=== PATIENT | female | born 1985 | race Caucasian/White ===

== ENCOUNTER 2019-04-04 05:48 | Day surgery (SDC) | payer OTHER ==
--- NOTE | 2019-04-03 21:14 | PDGENHP ---
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 Sacroiliac Joint Pain (R>L) 3. 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.~~She~is engaged;~nicholas~has no~children. ~Ann enjoys climbing, running, yoga, hiking, [employer] skiing and mountaineering. Mary Ann's~bilateral~hip pain (L>R)~started at age 6 (although within the last 10 the pain has progressively gotten worse), with~no~recalled trauma or injury,. ~Anndoes not have~a known history of hip dysplasia. Presentation today is of~C-Shaped pattern~bilateral~hip pain. ~The hip~does not~ wake her~at night and~does not~click and catch on~her. Sitting~can be a real struggle~for her.~Anndoes~report suffering from lower back pain episodes. Annhas not~participated in physical therapy and has not~tried other conservative measures. Annhas~utilized medication for pain management, including NSAID.~Ann has used medication since the pain began. Annunderstands that~nicholas~has a hip and pelvis problem which should be researched and wishes to get a better understanding of~her~hip status, followed by an establishment of a treatment strategy, hoping~nicholas~would be able to get back to~her~well being active life. History: Past medical history:~~ History of Osteopenia Relevant familial history:~None which is relevant~ Past surgical history:~ No. Surgery Anesthesia 1 Left ulna/radius ORIF general 2 Femoral hernias general 3 Sinus surgery general Mary Ann~denies problematic issues with general anesthesia in the past. I have reviewed, verified and agree with the past medical, surgical, family and social history. Current Medications:~has a current medication list which includes the following prescription(s): celecoxib, ondansetron, ondansetron, tretinoin, tretinoin, and venlafaxine. ALLERGIES:~is allergic to iodine. Objective: Physical Examination: Mary Ann~is 5~feet~9~inches tall and weighs~138~Lbs. Mary Ann~is AAO x3; she~is well-nourished, in NAD. Skin is warm and dry. ~Breathing is non-labored. ~CV with RRR by pulse. Abdomen is soft, NTND. Currently,~she~walks with a~normal~gait. Trendelenburg sign is~negative~and proprioception~is normal,~both~sides. She~presents~with mild~signs of joint laxity.~Beightons Score:~1 Lower spine examination is~negative~for sciatic or femoral nerve irritation with negative~SLR &~femoral stretch tests. Range of motion of the spine is normal~for flexion, extension, and rotations,~with no~associated pain. Strength, Sensation and pulses are~normal -~bilaterally Ankles and knees exams are~normal~and~no~mal-alignment is evident.~ She~has~no leg length discrepancy. Thigh circumference is~symmetric~with no evidence for muscle atrophy~on both~ sides. FOOT SIZE:~9 Hip ROM (degrees): FL ER At 90~hip FL IR At 90~hip FL AB AD EX IR Neutral hip ER Neutral hip R 120 45 30 40 5 10 50 35 L 120 50 20 35 10 10 50 40 Specific hip and pelvis tests: Impingement Test KINGA Roll Add. Longus R +++ +++ Negative Negative L +++ +++ + Negative Glut. Med ITB Posterior Imp R Negative 5/5 strength Negative 5/5 strength Negative L Negative 5/5 strength Negative 5/5 strength Negative Squeeze test measured~strong Bony Symphysis pubis is~pain free~to touch while concentric activity of the rectus abdominis, does not~produce pain at its insertion. Ilio Psos specific tests are~negative for pain during cycling for~both hips~and no snap. HF has~pain and weakness~the left hip. Greater trochanteric burse is~pain free~on both hips. Piriformis tests: FAIR is~negative,~with no~local signs of neuritis related to sciatic nerve. SIJs examination is~produces pain on~both sides~with~normal~KINGA in relation and local tenderness. Hamstrings tests are~negative~functional contraction and negative~tendinopathy both hips. On a daily basis, the following percentages reflectSuzi's overall total pain : Deep hip:~40% SIJ:~60% Imaging: Radiology studies which I~have personally reviewed, analyzed and measured are below: XR: AP of the hip and pelvis: Performed in a~good~technique Coccyx to pubic symphysis distance~1.9~cm. 0~degrees [place]~Lines are preserved. Minimal~Pathological signs are seen in the Symphysis Pubis.~ Minimal~Pathological signs are seen at the Ischial~tuberosity. ~ Specific measurements show: NSA~ LCE Sourcil~Angle Sharp's angle Lat. Cam Lat. Pincer C.Over~sign Head~Coverage % ATDmm R N 34 2 41 + - - N N L N 40 1 39 + - - N N Labral calcifications Pos. wall sign ISS NAD ~~Dysplasia Comments R Negative Negative 11.5~mm Negative L Negative Negative 12.7~mm Negative Sclerosis Sup. Lat. OA Cysts Joint Space-WBZ Joint Space-Medial R Negative Negative + 4.9~mm 4.6~mm L Negative + Negative 4.2~mm 2.8~mm X Table lateral: Anterior cam lesion is~seen~on both hips. Alpha Angle: ~ Right~57~dergrees Left~52~degrees Impression and plan:Violet Reese~is a~33 y.o.~active female~suffering from symptomatic~Bilateral~hip pain due to Femoroacetabular impingement (MEREDITH)~Cam type,~with~resultant labral tear causing significant disability to~her~and altering~her~sport and life activities. Physical examination, imaging, and~her~story correspond with the diagnosis mentioned above. I explained that femoroacetabular impingement (MEREDITH) arises due to a bony or soft tissue conflict between the femur (ball) and acetabulum (socket) caused by an abnormality in the shape of the hip joint. Over time, repetitive impingement can result in damage to the labrum and adjacent surface cartilage within the socket, ultimately giving rise to progressive osteoarthritis of the hip. I explained that although a labral tear can be a source of pain, it is rarely the root of the problem and typically occurs secondary to an underlying abnormality in the shape and mechanics of the hip joint. ~ I reviewed conservative treatment options for MEREDITH including activity modification to avoid positions of impingement, physical therapy, non-steroidal anti-inflammatory medications, and various injections (corticosteroid and PRP) aimed at reducing inflammation in the hip joint or/and preventing dynamic impingement. PRP injections may promote healing and reduce symptoms in certain cases but it will not repair chronically damaged tissue. Although these measures may help to buy time and reduce current level of symptoms, they are not a definitive solution to the problem given the underlying abnormality in the shape of the hip joint. Patients who have failed conservative management and continue to experience symptoms are candidates for hip arthroscopy, a minimally invasive surgery that can definitively address the underlying problem. Hip arthroscopy typically includes treating the labrum with either repair or reconstruction of the torn labrum; as well as addressing the underlying abnormalities by restoring the normal shape to the hip joint. ~If the cartilage is damaged a Microfracture surgical procedure may also be necessary to help stimulate the growth of fibrocartilage. ~If a patient requires a labral reconstruction or a Microfracture, the initial rehabilitation from the surgery may take longer, but the watermelon inspector results are typically favorable. I reviewed the technical aspects of hip arthroscopy including risks, benefits, and expected course of recovery.~Mary Ann~understands that hip arthroscopy is a minimally invasive outpatient procedure carried out through small incisions on the outer aspect of the hip joint. During surgery, the labral tear will be identified and either repaired or reconstructed~using bone anchors and suture material. Additionally, any excessive bone will be removed with a high-speed adonis to reshape the hip joint and restore normal anatomy. Risks include infection, bleeding, injury to nearby nerves or vessels, stiffness, persistent pain, instability, venous thromboembolic disease, and traction related complications including temporary foot numbness. Rarely, revision surgery may be required to address these problems. Overall recovery takes approximately 4~ 8~months depending on the extent of damage and degree of repair. In the event that the labral tissue quality is inadequate for successful repair and healing,~Mary Ann~understands that a labral reconstruction will be performed. This procedure entails placing a cadaver tissue graft within the hip joint and stabilizing it with bone anchors to build a new labrum. The overall recovery time for labral reconstruction is similar to that of labral repair, although the surgical procedure takes longer to perform. Annwill review the info presented. In order to obtain more detailed information regarding the alignment, orientation, and shape of the bony hip and pelvis I will order a CT scan to be performed. The results of the CT scan, including femoral torsion and acetabular version measured values and 3D images, will aid me in deciding on the best treatment strategy and surgical pre-planning. In order to better evaluate the soft tissues and cartilage of the hip joint, I will order a~LEFT HIP~MRI scan. We will refer her to Dr. Sotelo to evaluate her Sacroiliac Joint Pain Annwill contact us if she~wishes to pursue further treatment in the future. Annis happy with this plan. I have also supplied~her~with handouts, outlining the expected surgical treatment and rehab involved. I wish~Annall the best, ~~ Pipo Aguilar, PAC History Information - Allergies/Home Medication List Allergies/Adverse Reactions: No Known Allergies Allergy (Verified 03/29/19 11:54) Home Medications: Effexor Xr 03/29/19 [Last Taken Unknown] I have personally reviewed and updated: medical history - Social History Smoking Status: Never smoked Review of Systems Review of Systems: Physical Exam Physical Exam:
[2019-04-04] MEDS ORDERED: ceFAZolin 2 GM/DEXTROSE 100 ML IV ONE (06:01)
[2019-04-04] MEDS ORDERED: ACETAMINOPHEN 500 MG TAB PO ONE (06:01)
[2019-04-04] MEDS ORDERED: PREGABALIN 150 MG CAP PO ONE (06:01)
[2019-04-04] MEDS ORDERED: LR 1,000 ML IV ONE (06:02)
[2019-04-04] MEDS ORDERED: ONDANSETRON 4 MG/2 ML VIAL IVP ONE (06:17)
[2019-04-04] MEDS ORDERED: fentaNYL 100 MCG/2 ML INJ ONE (06:48)
--- NOTE | 2019-04-04 06:48 | PDANEPAE ---
ANE History of Present Illness here for B hip arthroscopy femoroplasty ANE Past Medical History - Cardiovascular History Hx Hypertension: No Hx Arrhythmias: No Hx Chest Pain: No Hx Coronary Artery / Peripheral Vascular Disease: No Hx CHF / Valvular Disease: No Hx Palpitations: No - Pulmonary History Hx COPD: No Hx Asthma/Reactive Airway Disease: No Hx Recent Upper Respiratory Infection: No Hx Oxygen in Use at Home: No Hx Sleep Apnea: No Sleep Apnea Screening Result - Last Documented: Negative - Neurologic History Hx Cerebrovascular Accident: No Hx Seizures: No Hx Dementia: No - Endocrine History Hx Diabetes: No - Renal History Hx Renal Disorders: No - Liver History Hx Hepatic Disorders: No - Neurological & Psychiatric Hx Hx Neurological and Psychiatric Disorders: No - Cancer History Hx Cancer: No - Congenital Disorder History Hx Congenital Disorders: No - GI History Hx Gastrointestinal Disorders: No - Other Health History Other Health History: none - Chronic Pain History Chronic Pain: No - Surgical History Prior Surgeries: SINUS SX 2017 ANE Review of Systems Review of Systems: - Exercise capacity METS (RN): 5 METS ANE Patient History - Allergies Allergies/Adverse Reactions: oxybenzone Allergy (Verified 04/04/19 06:10) Blisters on skin - Home Medications Home Medications: Effexor Xr 03/29/19 [Last Taken 04/03/19] - NPO status NPO Status: no food or drink >8 hours NPO Since - Liquids (Date): 04/03/19 NPO Since - Liquids (Time): 22:00 NPO Since - Solids (Date): 04/03/19 NPO Since - Solids (Time): 21:00 - Anes Hx Anes Hx: no prior problems - Smoking Hx Smoking Status: Never smoked - Alcohol Use Alcohol Use: Occasionally - Family Anes Hx Family Anes Hx: none Family Hx Anesthesia Complications: none ANE Labs/Vital Signs - Vital Signs Blood Pressure: 111/69 Heart Rate: 65 Respiratory Rate: 18 O2 Sat (%): 96 Height: 175.26 cm Weight: 63.503 kg ANE Physical Exam - Airway Neck exam: FROM Mallampati Score: Class 2 Mouth exam: normal dental/mouth exam - Pulmonary Pulmonary: no respiratory distress, clear to auscultation - Cardiovascular Cardiovascular: regular rate and rhythym, no murmur, rub, or gallop - ASA Status ASA Status: I ANE Anesthesia Plan Anesthesia Plan: general endotracheal anesthesia
[2019-04-04] MEDS ORDERED: PROPOFOL 200 MG/20 ML VIAL ONE (06:49)
[2019-04-04] MEDS ORDERED: LIDOCAINE 2% 100 MG/5 ML SYR ONE (06:49)
[2019-04-04] MEDS ORDERED: ROCURONIUM 100 MG/10 ML VIAL ONE ×2 (06:49→08:48)
[2019-04-04] MEDS ORDERED: MIDAZOLAM 2 MG/2 ML VIAL IVP ONE (06:55)
[2019-04-04] MEDS ORDERED: SCOPOLAMINE HYDROBROMIDE 1 MG/3 DAYS PATCH TD SCH (07:00)
[2019-04-04] MEDS ORDERED: PROPOFOL/EMULSION 500 MG/50 ML BOTTLE IV ONE ×4 (07:18→14:07)
[2019-04-04] MEDS ORDERED: BUPIVACAINE/EPI 0.25% 30 ML SDV ONE (07:26)
[2019-04-04] MEDS ORDERED: EPINEPHrine 30 MG/30 ML MDV (0.1 MG/0.1 ML) ONE (07:27)
[2019-04-04] MEDS ORDERED: ceFAZolin 1 GM VIAL ONE (10:57)
[2019-04-04] MEDS ORDERED: HYDROmorphONE/DILAUDID 2 MG/ML INJ ONE (14:44)
[2019-04-04] MEDS ORDERED: SUGAMMADEX SODIUM 200 MG/2 ML VIAL IVP ONE (15:24)
[2019-04-04] MEDS ORDERED: HYDROCODONE/APAP 5/325 TAB PO PRN (15:33)
[2019-04-04] MEDS ORDERED: DIAZEPAM 10 MG/2 ML SYR IVP PRN (15:33)
[2019-04-04] MEDS ORDERED: NS 500 ML IV PRN (15:33)
[2019-04-04] MEDS ORDERED: oxyCODONE IR 5 MG TAB PO PRN (15:33)
[2019-04-04] MEDS ORDERED: NALOXONE HCL 0.4 MG/ML INJ IVP PRN (15:33)
[2019-04-04] MEDS ORDERED: PROMETHAZINE HCL 25 MG/ML INJ IVP PRN (15:33)
[2019-04-04] MEDS ORDERED: ACETAMINOPHEN 500 MG TAB PO PRN (15:33)
[2019-04-04] MEDS ORDERED: fentaNYL 100 MCG/2 ML INJ IVP PRN (15:33)
[2019-04-04] MEDS ORDERED: ONDANSETRON 4 MG/2 ML VIAL IVP PRN (15:33)
[2019-04-04] MEDS ORDERED: HYDROmorphONE/DILAUDID 1 MG/ML INJ IVP PRN (15:33)
--- NOTE | 2019-04-04 15:37 | POSTANESTH ---
Post Anesthetic Evaluation Cardiovascular Status: Normal, Stable, Similar to Pre-Op Cond Respiratory Status: Normal, Stable, Similar to Pre-op Cond., Requires Airway Assist Level of Consciousness/Mental Status: Moderately Sleepy Pain Control: Adequate, Prn Tx Ordered Nausea/Vomiting Control: Adequate, Prn Tx Ordered Complications Possibly Related to Anesthesia: None Noted
[2019-04-04] MEDS ORDERED: DIAZEPAM 10 MG/2 ML SYR ONE (16:45)
[2019-04-04] MEDS ORDERED: HYDROmorphONE/DILAUDID 1 MG/ML INJ ONE (16:45)
[2019-04-04] MEDS ORDERED: HYDROCODONE/APAP 5/325 TAB ONE (17:31)
[2019-04-04 19:05] VITALS: BP 95/55
== END 2019-04-04 19:18 | disposition home or self-care (01) ==
LOC: FSGY 05:48
PROVIDERS: ATTEND Orthopaedic Surgery Sports Medicine
DX: Q65.9 Congenital deformity of hip, unspecified (principal); M76.891 Other specified enthesopathies of right lower limb, excluding foot; M76.892 Other specified enthesopathies of left lower limb, excluding foot; M24.851 Other specific joint derangements of right hip, not elsewhere classified; M24.852 Other specific joint derangements of left hip, not elsewhere classified
CPT/HCPCS: C1713; J0171; J0690; J1170; J2001; J2250; J2405; J2704; J3010; J3360